=== PATIENT | male | born 1990 | race Two or more races ===

== ENCOUNTER 2016-06-29 20:14 | Emergency (ER) | payer MEDICAID ==
[~2016-06-29] VITALS: Ht 182.9 cm; Wt 86.2 kg
[2016-06-29 20:27] VITALS: BP 127/83
== END 2016-06-29 22:25 | disposition left against medical advice (07) ==
LOC: ER 20:29
DX: M79.672 Pain in left foot (principal); M25.572 Pain in left ankle and joints of left foot; Z53.21 Procedure and treatment not carried out due to patient leaving prior to being seen by health care provider; V87.8XXA Person injured in other specified noncollision transport accidents involving motor vehicle (traffic), initial encounter; Y93.89 Activity, other specified; Y99.8 Other external cause status; Y92.410 Unspecified street and highway as the place of occurrence of the external cause
CPT/HCPCS: 73610